=== PATIENT | female | born 1975 | race Caucasian/White ===

== ENCOUNTER → 2019-10-06 12:40 | Outpatient (BNVA) | payer BC, SELFPAY | PROVIDERS: Family Provider Nurse Practitioner Family; PCP Nurse Practitioner Family; Referring Provider Family Medicine; Visit Provider Specialist | DX: G43.411 Hemiplegic migraine, intractable, with status migrainosus (principal) | CPT/HCPCS: 99205; 99215 ==

== ENCOUNTER 2021-06-06 08:25 | Outpatient (CLI) | payer BC, SELFPAY ==
--- NOTE | 2021-06-06 08:31 | MM_ITS ---
WS: [id number] BILATERAL SCREENING DIGITAL MAMMOGRAM WITH CAD HISTORY: SCREENING COMPARISON: 07/22/2013 Bilateral CC and MLO views submitted. Computer aided detection analyzed. Breast composition: The breasts are heterogeneously dense, which may obscure small masses. No suspici ous masses, microcalcifications or architectural distortion. Small cluster of round calcifications in the posterior LEFT breast. MM/[place] [id number] IMPRESSION: BI-RADS: 2-Benign FOLLOW UP: 1 Year Follow-up
== END 2021-06-06 08:26 | disposition home or self-care (01) ==
LOC: RADSHAW 08:30
PROVIDERS: PCP Nurse Practitioner Family; Visit Provider Nurse Practitioner Family
DX: Z12.31 Encounter for screening mammogram for malignant neoplasm of breast (principal)
CPT/HCPCS: 77067

== ENCOUNTER 2022-10-25 14:23 | Outpatient (CLI) | payer BC, SELFPAY ==
--- NOTE | 2022-10-25 | XRR_ITS ---
PROCEDURE INFORMATION: Exam: XR Left Knee Exam date and time: 10/25/2022 2:33 PM Age: 47 years old Clinical indication: Pain; Knee; Left; Additional info: Left knee pain TECHNIQUE: Imaging protocol: Radiologic exam of the Left knee. Views: 3 views. COMPARISON: CR XR knee LT 3V* [id number] 10/12/2017 11:03 AM FINDINGS: Bones/joints: There are moderate-advanced degenerative changes medial knee compartment with joint space narrowing, subchondral sclerosis and marginal spurring progressed from previous exam. There are less pronounced changes of the lateral knee compartment and patellofemoral joint. There is no fracture, malalignment or underlying osseous lesion. Soft tissues: Unremarkable. 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
== END 2022-10-25 14:24 | disposition home or self-care (01) ==
LOC: RAD 14:26
PROVIDERS: PCP Nurse Practitioner Family; Visit Provider Nurse Practitioner Family
DX: M17.12 Unilateral primary osteoarthritis, left knee (principal)
CPT/HCPCS: 73562

== ENCOUNTER 2022-11-30 15:06 | Outpatient (CLI) | payer BC, SELFPAY ==
--- NOTE | 2022-11-30 15:34 | ECG_ITS ---
[facility] Test Date: 2022-11-30 Pat Name: Santa Alonso Department: Room: Gender: Female Application [employer]ator: : 1975 Requested By: Hailee Euceda Order Number: [id number] Segrei MD: MARILY REGALADO Measurements Intervals [place] Rate: 60 P: -5 [place]: 153 QRS: 26 QRSD: 81 T: 34 QT: 377 QTc: 377 Interpretive Statements SINUS RHYTHM LOW QRS VOLTAGE IN PRECORDIAL LEADS [QRS DEFLECTION < 1.0 mV IN CHEST LEADS] INTERPRETATION BASED ON A DEFAULT AGE OF 40 YEARS No previous ECG available for comparison Electronically Signed On 12-02-2022 23:45:12 CDT by MARILY REGALADO [id number] f
== END 2022-11-30 15:07 | disposition home or self-care (01) ==
PROVIDERS: PCP Nurse Practitioner Family; Visit Provider Nurse Practitioner Family
DX: Z13.6 Encounter for screening for cardiovascular disorders (principal)
CPT/HCPCS: 93005

== ENCOUNTER 2022-12-14 15:56 | Outpatient (CLI) | payer BC, SELFPAY ==
--- NOTE | 2022-12-14 16:18 | XRR_ITS ---
PROCEDURE INFORMATION: Exam: XR Chest Exam date and time: 12/14/2022 4:20 PM Age: 47 years old Clinical indication: Pre-operative exam; Cardiovascular screening and respiratory screening exam; Patient HX: Pre-op for knee replacement surgery soon. No chest complaints; Additional info: Pre-op chest exam TECHNIQUE: Imaging protocol: Radiologic exam of the chest. Views: 2 views. COMPARISON: No relevant prior studies available. FINDINGS: Lungs: Lungs are clear bilaterally. Pleural spaces: No pleural effusion. No pneumothorax. Heart/Mediastinum: The cardiac silhouette and mediastinal contours are unremarkable. Bones/joints: Unremarkable for age. XR/XR chest 2V* [id number] IMPRESSION: Negative chest radiographs.
== END 2022-12-14 15:57 | disposition home or self-care (01) ==
PROVIDERS: PCP Nurse Practitioner Family; Visit Provider Nurse Practitioner Family
DX: Z01.811 Encounter for preprocedural respiratory examination (principal)
CPT/HCPCS: 71046

== ENCOUNTER 2023-01-31 06:00 | Outpatient (RCR) | payer BC, SELFPAY | END 2023-02-14 23:59 | disposition home or self-care (01) | LOC: TPT 06:00 | PROVIDERS: Visit Provider Student in an Organized Health Care Education/Training Program | DX: Z47.1 Aftercare following joint replacement surgery (principal); Z96.652 Presence of left artificial knee joint | CPT/HCPCS: 97110; 97162 ==

== ENCOUNTER 2023-02-15 06:00 | Outpatient (RCR) | payer BC, SELFPAY | END 2023-03-16 23:59 | disposition home or self-care (01) | LOC: TPT 06:00 | PROVIDERS: Visit Provider Student in an Organized Health Care Education/Training Program | DX: Z47.1 Aftercare following joint replacement surgery (principal); Z96.652 Presence of left artificial knee joint | CPT/HCPCS: 97110; 97140 ==

== ENCOUNTER 2023-03-17 06:00 | Outpatient (RCR) | payer BC, SELFPAY | END 2023-03-27 23:59 | disposition home or self-care (01) | LOC: TPT 06:00 | PROVIDERS: Visit Provider Student in an Organized Health Care Education/Training Program | DX: Z47.1 Aftercare following joint replacement surgery (principal); Z96.652 Presence of left artificial knee joint | CPT/HCPCS: 97110 ==